=== PATIENT | male | born 1980 | race Caucasian/White ===

== ENCOUNTER 2020-11-25 18:46 | Emergency (ER) | payer OTHER, SELFPAY ==
--- NOTE | ~2020-11-25 | CT_ITS ---
EXAMINATION: CTA brain carotid EXAM DATE: 11/25/2020 21:20 INDICATION: R sided headache. TECHNIQUE: Spiral CTA of the carotid arteries was performed with intravenous injection 100 cc of Om nipaque 350. Axial, coronal, sagittal reformatted images reviewed. Additional reformatted images cre ated on dedicated 3-D workstation. NASCET comparable standard used to assess the degree of arterial stenosis. Spiral CT angiogram cerebral arteries performed with the same intravenous injection of con trast. Source images of the brain CTA transferred to dedicated workstation for 3-D rotational image c reation. Coronal, sagittal maximum intensity pixel images also reviewed. The dose-length product (D LP) for this examination was 1287.68 mGy-cm. The exposure was tailored according to patient size, a nd iterative reconstruction (ASIR) was used as additional dose reduction technique. Correlation is ma de to noncontrast head CT performed earlier. FINDINGS: Bilateral carotid 0% stenosis. The left vertebral artery is dominant. There is no carotid or vertebral basilar arterial dissection or fibromuscular dysplasia. There are no cerebral artery ane urysms. There is symmetric cerebral artery arborization. The sagittal, transverse and sigmoid sinuses enhance normally, no venous sinus thrombosis. Internal cerebral veins also enhance normally. There are no areas of abnormal enhancement on the post contrast images. Incidental Findings: Right lateral scalp sebaceous cyst. IMPRESSION: 1. No acute carotid or intracranial findings. 2. Bilateral carotid 0% stenosis Reviewed, dictated and finalized at location A.
--- NOTE | ~2020-11-25 | CT_ITS ---
EXAMINATION: CT brain wo con DATE: 11/25/2020 19:37 INDICATION: Headache of the right ear for 3 weeks. No known injury. TECHNIQUE: Computed tomography (CT) of the head was performed without intravenous contrast. The mA wa s adjusted according to patient size. Iterative reconstruction technique was employed. Exam dose: 60 5.33 mGy-cm total exam DLP. COMPARISON: None FINDINGS: No intracranial mass lesion or hemorrhage or cerebrovascular accident. No midline shift or mass effect. Normal ventricular size. No subdural or epidural hematoma. No fracture or bone destruction of the cranial vault. Included paranasal sinuses and mastoid air cells are normally developed and aerated. IMPRESSION: No significant abnormality Reviewed, dictated and finalized at Location [facility]. Reviewed, dictated and finalized at location A. IMPRESSION: No significant abnormality
[2020-11-25 19:04] VITALS: BP 170/100; PULSE 70; RESP 18; TEMP 36.3; O2SAT 99
--- NOTE | 2020-11-25 19:10 | ED.HA ---
HPI - Headache General Chief Complaint: Headache Stated Complaint: CRUZ X3 weeks Time Seen by Provider: 11/25/20 19:06 Source: RN notes reviewed History of Present Illness HPI Narrative: Patient presents to emergency department from home for headache. Patient states headache has been present for the past 3 weeks and will wax and wane in intensity but has been constant for the past 3 weeks. The pain is located above the right ear and then will become worse and radiate down into the jaw and to the right posterior neck denies any radiation of the left side of the neck. States he had one episode of nausea with the pain approximately a week ago but none since he does state he has a history of migraines he denies any fevers or chills vision changes ear pain rhinorrhea sore throat cough numbness or tingling in the extremities or any other symptoms. States he last took a Tylenol at 1 PM today Related Data Allergies Allergy/AdvReac Type Severity Reaction Status Date / Time peppermint Allergy Hives Verified 11/25/20 19:38 Review of Systems Review of Systems: Narrative: Gen.: Denies fevers or chills Eyes: Denies eye pain or visual change ENT: Denies congestion Respiratory: Denies shortness of breath or cough CV: Denies chest pain or palpitations GI: Denies abdominal pain nausea, emesis or diarrhea Musculoskeletal: Denies back pain or muscle pain Neuro: See HPI Skin: Denies rash Except as documented, all other systems reviewed and negative [facility] Past Medical History Medical History (Updated 11/25/20 @ 22:32 by Tristian Martinez DO) GERD (gastroesophageal reflux disease) Migraines Social History Social History (Updated 11/25/20 @ 19:12 by Tristian Martinez DO) Smoking status: Never smoker Exam Narrative: Exam Narrative: APPEARANCE: No acute distress, nontoxic, resting in bed EYES: EOMI PERRL HEENT: Normocephalic, atraumatic, TMs clear bilaterally, nares patent OMM no erythema exudate posterior pharynx neck supple, no midline tenderness palpation no managements, mild tenderness over the right paravertebral muscles C5-7 pain with rotation of the head to the left RESPIRATORY: No respiratory distress Clear to auscultation bilaterally with no rhonchi wheezing or rales. CARDIOVASCULAR: Regular rate and rhythm without murmurs rubs or gallops. ABDOMINAL: Soft, nontender, nondistended, no rebound or guarding MUSCULOSKELETAl: Moves all extremities. No clubbing, cyanosis or edema. NEURO: Awake and alert x 4. Following commands, speech normal, no focal deficits SKIN:: Warm, dry. No rashes lesions or abrasions PSYCHIATRIC: Normal affect/mood, Course Course Emergency Course: Cussed with patient patient seen on CT states he has had a hard cyst for numerous years in that region of his head Went to discussed with patient findings of CT scan discussed my feeling that this is likely more musculoskeletal when discussing with the patient he does now note that approximately 3 days prior to the onset of his right-sided headaches he had a massage and he had told the masseuse he had migraines and he states she worked very hard on his neck with this new information I will obtain a CTA to rule out carotid injury Discussed with patient results of workup and diagnosis. Discussed need for follow-up with primary care, proper use of medication, and reasons to return to the emergency department. Patient understands and agrees to current treatment plan Vital Signs Vital signs: Vital Signs Temperature 97.4 F L 11/25/20 19:04 Pulse Rate 70 11/25/20 19:04 Respiratory Rate 18 11/25/20 19:04 Blood Pressure 170/100 H 11/25/20 19:04 Pulse Oximetry 99 11/25/20 19:04 Temperature 98.3 F 11/25/20 19:34 Pulse Rate 73 11/25/20 21:24 Respiratory Rate 19 11/25/20 21:24 Blood Pressure 133/99 H 11/25/20 21:24 Pulse Oximetry 99 11/25/20 21:24 MDM - Headache MDM Narrative Medical decision making narrative: Patient with pain of her right e
--- NOTE | 2020-11-25 19:17 | PC.NURSE ---
pt to radiology via cart.
--- NOTE | 2020-11-25 19:18 | PC.NURSE ---
Pt presents to ED with complaints of headache that has been persistent for the past 2 weeks. Pt states initial onset was after he coughed and at that time he felt a pop in his head. States since then pain has been persistent. Pain starts at right occipital lobe and radiates down left neck. Pt admits to hx of migraine headaches and states that this headache is more intense. Denies photosensitivity and misophonia. Pt is alert and oriented x4 and in no obvious distress at this time with stable vitals. Pt resting on cart in its lowest position with call button and personal items within reach. Pt advised to press call button for assistance.
[2020-11-25 19:34] VITALS: BP 141/90; PULSE 86; RESP 20; TEMP 36.8; O2SAT 99
--- NOTE | 2020-11-25 19:34 | PC.NURSE ---
pt returned from radiology.
[2020-11-25] MEDS: SODIUM CHLORIDE 0.9% IV 1,000 ML 999 ML IV CONT (19:38)
[2020-11-25] MEDS: KETOROLAC 30 MG/ML VIAL (*BKC) IV PUSH (19:39)
--- NOTE | 2020-11-25 19:48 | PC.NURSE ---
Light dimmed and sheet provided for comfort. Pt advised to press call button for assistance.
--- NOTE | 2020-11-25 20:10 | PC.NURSE ---
Pt states he is feeling a little better. Pt remains alert and oriented x4 with stable vitals. Advised to press call button for assistance.
--- NOTE | 2020-11-25 20:21 | PC.NURSE ---
EDMD presented to bedside to update pt on poc. All questions and concerns addressed.
--- NOTE | 2020-11-25 20:38 | PC.NURSE ---
Blood specimens collected and sent to lab. Pt resting on cart and states he feels much better. Remains a/o x4 and vitals are stable. Pt advised to press call button for assistance.
[2020-11-25 20:39] LABS: Basophils Absolute Auto 0.1 K/mm3 (0.0-0.1); Basophils Percent Auto 0.7 % (0.2-1.2); Eosinophils Absolute Auto 0.4 K/mm3 (0-0.3); Hematocrit 39.4 % (42.0-52.0); Hemoglobin 13.2 g/dL (14.0-18.0); Immature Granulocyte Absolute 0.02 K/mm3 (0.00-0.031); Immature Granulocyte Percent A 0.3 % (0-0.5); Lymphocytes Absolute Auto 2.82 K/mm3 (0.9-3.2); Lymphocytes Percent Auto 40.3 % (18.3-44.2); Mean Corpuscular HGB Conc 33.5 g/dl (32-36); Mean Corpuscular Hemoglobin 27.4 pg (26-34); Mean Corpuscular Volume 81.9 fl (80-100); Mean Platelet Volume 9.4 fl (7.4-10.4); Monocytes Absolute Auto 0.7 K/mm3 (0.1-0.6); Monocytes Percent Auto 9.3 % (2.6-8.5); Neutrophils Absolute Auto 3.1 K/mm3 (1.3-6.7); Neutrophils Percent Auto 44.4 % (45.5-73.1); Platelet Count Result 297 k/mm3 (150-375); Red Blood Count 4.81 M/mm3 (4.6-6.20); Red Cell Distribution Width 13.1 % (11.5-14.5)
[2020-11-25 20:49] LABS: Anion Gap 11 mmol/L (8-16); Blood Urea Nitrogen 17 mg/dL (9-20); Calcium 8.9 mg/dL (8.4-10.2); Carbon Dioxide 19 mmol/L (22-30); Chloride 110 mmol/L (98-107); Estimated CRCL calculation 124 ml/min; Estimated Glomerular Filt Rate > 60; Glucose 92 mg/dL (75-110); Sodium 140 mmol/L (137-145)
--- NOTE | 2020-11-25 21:18 | PC.NURSE ---
pt to ct via cart.
--- NOTE | 2020-11-25 21:23 | PC.NURSE ---
pt returned from radiology.
[2020-11-25 21:24] VITALS: BP 133/99; PULSE 73; RESP 19; O2SAT 99
[2020-11-25 22:44] VITALS: BP 132/89; PULSE 76; RESP 16; O2SAT 100
== END 2020-11-25 22:45 | disposition home or self-care (01) ==
PROVIDERS: Emergency Provider Emergency Medicine; PCP Family Medicine
DX: R51.9 Headache, unspecified (principal); S16.1XXA Strain of muscle, fascia and tendon at neck level, initial encounter; K21.9 Gastro-esophageal reflux disease without esophagitis; M79.9 Soft tissue disorder, unspecified; X58.XXXA Exposure to other specified factors, initial encounter
CPT/HCPCS: 36415; 70450; 70496; 70498; 80048; 85025; 96361; 96374; 99284; J1885; J7030; Q9967

== ENCOUNTER 2021-01-18 16:47 | Emergency (ER) | payer OTHER, SELFPAY ==
--- NOTE | ~2021-01-18 | XR_ITS ---
EXAMINATION: XR chest 2V DATE: 01/18/2021 17:22 INDICATION: Shortness of breath, COVID positive TECHNIQUE: PA and lateral views of the chest are obtained. COMPARISON: None available FINDINGS: There are minimal airspace opacities of the lower lung zones. There is no pleural effusion or pneumothorax. The cardiomediastinal silhouette is normal. There is mild thoracic spondylosis. IMPRESSION: 1. Minimal airspace opacities of the lung bases, consistent with atelectasis versus pneumonia. Reviewed, dictated and finalized at location A. IMPRESSION: 1. Minimal airspace opacities of the lung bases, consistent with atelectasis ve rsus pneumonia.
[2021-01-18 17:05] VITALS: BP 126/83; PULSE 115; RESP 20; TEMP 36.8; O2SAT 95
--- NOTE | 2021-01-18 17:11 | ECG_ITS ---
Measurements Intervals [place] Rate: 92 P: 18 DE: 130 QRS: 27 QRSD: 74 T: 48 QT: 309 QTc: 384 Interpretive Statements SINUS RHYTHM NORMAL ECG Electronically Signed On 01-19-2021 9:35:05 CDT by Archie Gonzales D.O.
[2021-01-18 17:22] LABS: Basophils Percent Auto 0.4 % (0.2-1.2); Hematocrit 46.3 % (42.0-52.0); Hemoglobin 15.6 g/dL (14.0-18.0); Immature Granulocyte Absolute 0.02 K/mm3 (0.00-0.031); Immature Granulocyte Percent A 0.4 % (0-0.5); Lymphocytes Absolute Auto 1.02 K/mm3 (0.9-3.2); Lymphocytes Percent Auto 18.1 % (18.3-44.2); Mean Corpuscular HGB Conc 33.7 g/dl (32-36); Mean Corpuscular Hemoglobin 27.4 pg (26-34); Mean Corpuscular Volume 81.4 fl (80-100); Mean Platelet Volume 9.3 fl (7.4-10.4); Monocytes Absolute Auto 0.5 K/mm3 (0.1-0.6); Monocytes Percent Auto 8.1 % (2.6-8.5); Neutrophils Absolute Auto 4.1 K/mm3 (1.3-6.7); Platelet Count Result 225 k/mm3 (150-375); Red Blood Count 5.69 M/mm3 (4.6-6.20); Red Cell Distribution Width 13.5 % (11.5-14.5); White Blood Count 5.7 K/mm3 (4.5-10.0)
[2021-01-18 17:36] LABS: Alanine Aminotransferase 58 U/L (4-50); Albumin Level 4.8 g/dL (3.5-5.1); Alkaline Phosphatase 69 U/L (38-126); Anion Gap 16 mmol/L (8-16); Aspartate Amino Transferase 52 U/L (17-59); Bilirubin,Total 0.7 mg/dL (0.2-1.3); Blood Urea Nitrogen 17 mg/dL (9-20); Calcium 9.4 mg/dL (8.4-10.2); Carbon Dioxide 20 mmol/L (22-30); Chloride 98 mmol/L (98-107); Estimated CRCL calculation 102 ml/min; Estimated Glomerular Filt Rate > 60; Glucose 113 mg/dL (65-110); Potassium 4.2 mmol/L (3.4-5.0); Sodium 134 mmol/L (137-145)
[2021-01-18 18:10] LABS: Add Urine Microscopic? YES; Appearance Urine Clear (Clear); Bilirubin Urine Negative (Negative); Blood Urine Negative (Negative); Color Urine Amber (Yellow); Glucose Urine UA Negative (Negative); Ketones Urine 1+ mg/dL (Negative); Leukocyte Esterase Ur Negative LEU/UL (Negative); Mucus Urine Few /lpf; Nitrate Urine Negative (Negative); Protein Urine 1+ mg/dL (Negative); Squamous Epithelial Cell Urine Rare /hpf (Few); Urobilinogen Urine Negative mg/dL (<2.0); WBC Urine 0-3 /hpf
[2021-01-18 18:12] LABS: Specific Grav Ur 1.043 (1.001-1.035)
[2021-01-18 18:50] LABS: D Dimer 0.27 ug/mL (<0.48)
--- NOTE | 2021-01-18 18:50 | ED.WEAKNESS ---
HPI - Weakness General Chief complaint: Weakness Stated complaint: + Covid I don't think I can take care of myself Time Seen by Provider: 01/18/21 17:49 Source: patient Mode of arrival: ambulatory Limitations: no limitations History of Present Illness HPI Narrative: This is a 40 year old male that presents to the ER for generalized weakness. Reports he was diagnosed with Covid 2 days ago. Symptom onset 5 days ago. Reports he feels like he cannot take care of himself at home. Reports weakness, body aches, and headaches. Also reports chest pain and shortness of breath. He did not get his Covid vaccine. He has been taking Tylenol with little relief. Denies vision changes, vomiting, or numbness. Related Data Allergies Allergy/AdvReac Type Severity Reaction Status Date / Time peppermint Allergy Hives Verified 11/25/20 19:38 Review of Systems Review of Systems: CONSTITUTIONAL: Denies fever ENT: Reports rhinorrhea, congestion, sore throat CARDIOVASCULAR: Reports chest pain RESPIRATORY: Reports cough and dyspnea. GASTROINTESTINAL: Reports nausea MUSCULOSKELETAL: Reports myalgia. All systems reviewed & are unremarkable except as noted in HPI and below PMFSH Past Medical History Medical History (Updated 01/18/21 @ 20:20 by Tatiana Morales PA-C) GERD (gastroesophageal reflux disease) Migraines Social History Social History (Updated 11/25/20 @ 19:12 by Tristian Martinez DO) Smoking status: Never smoker Exam Narrative: GENERAL: Well-appearing, well-nourished, and in no acute distress. HEAD: Normocephalic, atraumatic. EYES: PERRLA and EOMI. ENT: Nares clear, no rhinorrhea or epistaxis. Mucous membranes moist. Oropharynx without tonsillar hypertrophy exudate or other lesions. Bilateral TMs pearly rogers non-bulging NECK: Supple. No adenopathy or masses. CHEST: Clear to auscultation. No respiratory distress. No wheezes rales or rhonchi HEART: Regular rate and rhythm. No murmur heard. Normal peripheral pulses. ABDOMEN: Soft, nontender, nondistended, normal active bowel sounds. EXTREMITIES: Normal range of motion. No edema. SKIN: Warm, dry, no rash. NEURO: No focal deficits. Alert and oriented x3. PSYCH: Normal mood and affect Course Vital Signs Vital signs: Vital Signs Temperature 98.2 F 01/18/21 17:05 Pulse Rate 115 H 01/18/21 17:05 Respiratory Rate 20 01/18/21 17:05 Blood Pressure 126/83 01/18/21 17:05 Pulse Oximetry 95 01/18/21 17:05 Temperature 98.2 F 01/18/21 17:05 Pulse Rate 109 H 01/18/21 18:53 Respiratory Rate 21 H 01/18/21 18:53 Blood Pressure 125/75 01/18/21 18:53 Pulse Oximetry 98 01/18/21 18:53 MDM - Weakness MDM Narrative Medical decision making narrative: Patient presents to the ER for generalized weakness. Recently diagnosed with coronavirus. He is afebrile and nontoxic-appearing. Vitals are stable. Oxygen saturation is remained normal on room air. CBC and metabolic panel without concerning findings. EKG without concerning changes and baseline troponin is negative. D-dimer is not elevated. Chest x-ray shows minimal airspace opacities at the lung bases, atelectasis versus pneumonia. Patient given IV fluids and antiemetics with improvement. He was instructed on continued care of viral infection. He is to follow-up with his primary care doctor. He was given warnings to return to the ER Lab Data Attestation: I reviewed the patient's lab results. Result diagrams: 01/18/21 17:14 01/18/21 17:14 Labs: Lab Results 01/18/21 01/18/21 01/18/21 Range/Units 17:14 17:14 17:14 WBC 5.7 (4.5-10.0) K/mm3 RBC 5.69 (4.6-6.20) M/mm3 Hgb 15.6 (14.0-18.0) g/dL Hct 46.3 (42.0-52.0) % MCV 81.4 (80-100) fl MCH 27.4 (26-34) pg MCHC 33.7 (32-36) g/dl RDW 13.5 (11.5-14.5) % Plt Count 225 (150-375) k/mm3 MPV 9.3 (7.4-10.4) fl Immature Gran % (Auto) 0.4 (0-0.5) % Neut % (Auto) 73.0 (45.5-73.1) % Lymph %
[2021-01-18 18:53] VITALS: BP 125/75; PULSE 109; RESP 21; O2SAT 98
[2021-01-18 18:58] LABS: Troponin I < 0.012 ng/mL (0.000-0.034)
[2021-01-18] MEDS: METOCLOPRAMIDE HCL INJ 10 MG/2 ML VIAL IV PUSH (19:14)
[2021-01-18] MEDS: SODIUM CHLORIDE 0.9% IV 500 ML 999 ML IV CONT (19:14)
[2021-01-18] MEDS: diphenhydrAMINE HCl INJ 50 MG/ML VIAL 25 MG IV PUSH (19:14)
[2021-01-18 20:51] VITALS: BP 130/90; PULSE 115; RESP 23; O2SAT 98
== END 2021-01-18 20:52 | disposition home or self-care (01) ==
PROVIDERS: Physician Assistant; Emergency Provider Emergency Medicine; PCP Family Medicine
DX: U07.1 COVID-19 (principal); J12.82 Pneumonia due to coronavirus disease 2019; K21.9 Gastro-esophageal reflux disease without esophagitis
CPT/HCPCS: 36415; 71046; 80053; 81001; 84484; 85025; 85380; 93005; 96361; 96374; 96375; 99284; J1200; J2765; J7040

== ENCOUNTER 2021-01-23 15:56 | Emergency (ER) | payer OTHER, SELFPAY ==
[2021-01-23] VITALS (15 sets, daily range): BP systolic 113–151; BP diastolic 63–94; PULSE 106–112; RESP 18–37; TEMP 36.3; O2SAT 94–100
--- NOTE | ~2021-01-23 | CT_ITS ---
EXAMINATION: CTA chest PE protocol DATE: 01/23/2021 20:42 INDICATION: Shortness of breath. TECHNIQUE: Computed tomography angiography (CTA) of the chest was performed with 100 mL Omnipaque-350 intravenous contrast timed to evaluate the pulmonary arteries. Coronal maximum intensity projection 3D-reconstructions were created by the technologist. Automated exposure control and iterative reconst ruction technique were employed. The dose-length product was 788.79 mGy-cm. COMPARISON: Chest single view 01/23/2021, chest 2 views 01/18/2021 FINDINGS: There are patchy groundglass and airspace opacities with volume loss involving all lobes. N o pleural effusion. The heart size is normal. No pericardial effusion. There is no pulmonary embolus. There is mild left hilar lymphadenopathy. There is a moderate-sized sliding hiatal hernia. There is diffuse hepatic steatosis. There is mild thoracic spondylosis. There is mild chronic anterior wedging of multiple vertebral bodies. IMPRESSION: 1. No pulmonary embolus. Sensitivity is moderately decreased by motion artifact. 2. Diffuse lung disease, consistent with COVID-19 pneumonia. 3. Mild left hilar lymphadenopathy, likely reactive. 4. Moderate-sized sliding hiatal hernia. Reviewed, dictated and finalized at location A. IMPRESSION: 1. No pulmonary embolus. Sensitivity is moderately decreased by motion artifact . 2. Diffuse lung disease, consistent with COVID-19 pneumonia. 3. Mild left hilar lymphadenopathy, likely reactive. 4. Moderate-sized sliding hiatal hernia.
--- NOTE | ~2021-01-23 | XR_ITS ---
EXAMINATION: XR chest 1V INDICATION: Shortness of breath, COVID positive, worsening shortness of breath TECHNIQUE: PA view of the chest is obtained. COMPARISON: 01/18/2021 FINDINGS: Patchy opacities are now present throughout all lung zones. There is no pleural effusion or pneumothorax. The cardiomediastinal silhouette is normal. IMPRESSION: 1. Diffuse lung opacities with interval worsening, likely worsening COVID pneumonia. Reviewed, dictated and finalized at location A. IMPRESSION: 1. Diffuse lung opacities with interval worsening, likely worsening COVID pneum onia.
--- NOTE | 2021-01-23 15:57 | ECG_ITS ---
Measurements Intervals [place] Rate: 114 P: 15 NM: 147 QRS: 16 QRSD: 81 T: 31 QT: 283 QTc: 391 Interpretive Statements SINUS TACHYCARDIA EARLY PRECORDIAL R/S TRANSITION NONSPECIFIC T-WAVE ABNORMALITY- INFERIOR LEADS BASELINE ARTIFACT- V5-V6 ABNORMAL ECG Electronically Signed On 01-23-2021 16:47:36 CDT by Archie Gonzales D.O.
[2021-01-23 16:33] LABS: Basophils Percent Auto 0.2 % (0.2-1.2); Hematocrit 42.4 % (42.0-52.0); Hemoglobin 14.6 g/dL (14.0-18.0); Immature Granulocyte Absolute 0.05 K/mm3 (0.00-0.031); Lymphocytes Absolute Auto 0.92 K/mm3 (0.9-3.2); Lymphocytes Percent Auto 18.4 % (18.3-44.2); Mean Corpuscular HGB Conc 34.4 g/dl (32-36); Mean Corpuscular Hemoglobin 27.1 pg (26-34); Mean Corpuscular Volume 78.7 fl (80-100); Mean Platelet Volume 9.3 fl (7.4-10.4); Monocytes Absolute Auto 0.3 K/mm3 (0.1-0.6); Neutrophils Absolute Auto 3.8 K/mm3 (1.3-6.7); Neutrophils Percent Auto 75.4 % (45.5-73.1); Platelet Count Result 238 k/mm3 (150-375); Red Blood Count 5.39 M/mm3 (4.6-6.20); Red Cell Distribution Width 12.9 % (11.5-14.5)
[2021-01-23 16:41] LABS: Anion Gap 13 mmol/L (8-16); Blood Urea Nitrogen 18 mg/dL (9-20); Carbon Dioxide 21 mmol/L (22-30); Chloride 98 mmol/L (98-107); Estimated CRCL calculation 94 ml/min; Estimated Glomerular Filt Rate > 60; Glucose 115 mg/dL (65-110); Potassium 3.9 mmol/L (3.4-5.0); Sodium 132 mmol/L (137-145)
[2021-01-23] MEDS: BENZONATATE 100 MG CAPSULE 200 MG PO (19:20)
--- NOTE | 2021-01-23 19:20 | PC.NURSE ---
Pt given tessalon perles as ordered.
[2021-01-23 19:33] LABS: Troponin I < 0.012 ng/mL (0.000-0.034)
--- NOTE | 2021-01-23 20:02 | PC.NURSE ---
pt walk tested by information technology technician. oxygen sats remained at 93-94% on RA.
--- NOTE | 2021-01-23 20:07 | PC.NURSE ---
pt provided with urinal. reports his mother went home. a/o x 4. able to tell this RN his name, month and year, and location. reports he is 'about ready to get out of here. bed alarm in place.
--- NOTE | 2021-01-23 20:22 | ED.SOB ---
HPI - SOB/Dyspnea General Chief Complaint: Shortness of Breath/Dyspnea Stated Complaint: covid +, sob Time Seen by Provider: 01/23/21 18:35 History of Present Illness HPI Narrative: Patient is a 40-year-old male who presents ER with cough. Patient recently diagnosed with COVID-19. He has been having cough and discomfort in his chest since his initial diagnosis. Reports cough worsened over the last day and is uncontrolled. He has not been using his albuterol because it causes burning when he inhales it. He reports persistent fevers and chills. No nausea or vomiting. Related Data Home Medications Medication Instructions Recorded Confirmed omeprazole 01/23/21 Allergies Allergy/AdvReac Type Severity Reaction Status Date / Time peppermint Allergy Hives Verified 01/23/21 18:32 Review of Systems Review of Systems: All systems reviewed & are unremarkable except as noted in HPI and below Constitutional: Constitutional: Reports chills, Reports fatigue and Reports fever(s) ENT: Reports nasal congestion and Denies sore throat Cardiovascular: Cardiovascular: Reports chest pain, Denies rapid heart rate and Denies radiating jaw, neck or arm pain Respiratory: Respiratory: Reports cough, Reports dyspnea and Denies wheezing Gastrointestinal: Gastrointestinal: Denies abdominal pain, Denies nausea and Denies vomiting PMFSH Past Medical History Medical History (Updated 01/23/21 @ 20:42 by Burke Guillen MD) GERD (gastroesophageal reflux disease) Migraines Surgical History Surgical History (Updated 01/23/21 @ 20:23 by Burke Guillen MD) No pertinent past surgical history Social History Social History (Updated 11/25/20 @ 19:12 by Tristian Martinez DO) Smoking status: Never smoker Gender identity (if verbalized by the patient): Male Exam Narrative: GENERAL: Fatigued-appearing, well-nourished, and in no acute distress. HEAD: Normocephalic, atraumatic. EYES: PERRL and EOMI. CHEST: Clear to auscultation. No respiratory distress. HEART: Tachycardic regular. Normal peripheral pulses. ABDOMEN: Soft, nontender, nondistended. EXTREMITIES: Normal range of motion. No edema. SKIN: Warm, dry, no rash. NEURO: Alert and oriented x3. PSYCH: Normal mood and affect. Course Course Emergency Course: He ambulated well without hypoxia. Patient given some Tessalon Perles. Encourage patient to use his albuterol to help with his cough and shortness of breath. Vital Signs Vital signs: Vital Signs Temperature 97.3 F L 01/23/21 16:04 Pulse Rate 112 H 01/23/21 16:04 Respiratory Rate 22 H 01/23/21 16:04 Blood Pressure 126/75 01/23/21 16:04 Pulse Oximetry 99 01/23/21 16:04 Temperature 97.3 F L 01/23/21 16:04 Pulse Rate 109 H 01/23/21 20:32 Respiratory Rate 26 H 01/23/21 20:32 Blood Pressure 151/94 H 01/23/21 20:32 Pulse Oximetry 94 01/23/21 20:32 MDM - SOB/Dyspnea Lab Data Result diagrams: 01/23/21 16:24 01/23/21 16:24 Labs: Lab Results 01/23/21 01/23/21 01/23/21 Range/Units 16:24 16:24 16:24 WBC 5.0 (4.5-10.0) K/mm3 RBC 5.39 (4.6-6.20) M/mm3 Hgb 14.6 (14.0-18.0) g/dL Hct 42.4 (42.0-52.0) % MCV 78.7 L (80-100) fl MCH 27.1 (26-34) pg MCHC 34.4 (32-36) g/dl RDW 12.9 (11.5-14.5) % Plt Count 238 (150-375) k/mm3 MPV 9.3 (7.4-10.4) fl Immature Gran % (Auto) 1.0 H (0-0.5) % Neut % (Auto) 75.4 H (45.5-73.1) % Lymph % (Auto) 18.4 (18.3-44.2) % [place] % (Auto) 5.0 (2.6-8.5) % Eos % (Auto) 0.0 (0-4.4) % Baso % (Auto) 0.2 (0.2-1.2) % Lymph # (Auto) 0.92 (0.9-3.2) K/mm3 [place] # (Auto) 0.3 (0.1-0.6) K/mm3 Eos # (Auto) 0.0 (0-0.3) K/mm3 Baso # (Auto) 0.0 (0.0-0.1) K/mm3 Abs Immat Gran (auto) 0.05 H (0.00-0.031) K/mm3 Absolute Neuts (auto) 3.8 (1.3-6.7) K/mm3 Absolute Nucleated RBC 0.0 (0.0-0.012) K/mm3 Nucleated RBC % 0.0 (0.0-0.2) % S
--- NOTE | 2021-01-23 20:33 | PC.NURSE ---
resting on stretcher, talking on phone, no s/s of acute distress.
[2021-01-23] MEDS: SODIUM CHLORIDE 0.9% IV 1,000 ML 999 ML IV CONT (20:45)
== END 2021-01-23 21:10 | disposition home or self-care (01) ==
PROVIDERS: Emergency Provider Emergency Medicine; PCP Family Medicine
DX: U07.1 COVID-19 (principal); J12.82 Pneumonia due to coronavirus disease 2019; K21.9 Gastro-esophageal reflux disease without esophagitis; K44.9 Diaphragmatic hernia without obstruction or gangrene; R00.0 Tachycardia, unspecified; R94.31 Abnormal electrocardiogram [ECG] [EKG]
CPT/HCPCS: 36415; 71045; 71275; 80048; 84484; 85025; 93005; 99284; A9270; J7030; Q9967

== ENCOUNTER 2021-02-25 12:54 | Emergency (ER) | payer OTHER, SELFPAY ==
--- NOTE | ~2021-02-25 | XR_ITS ---
EXAMINATION: XR shoulder LT min 2V DATE: 02/25/2021 13:30 INDICATION: Left shoulder pain post injury TECHNIQUE: AP internally and externally rotated, AP oblique externally rotated and transscapular Y vi ews of the left shoulder were obtained. COMPARISON: None FINDINGS: Normal alignment. No fracture. Glenohumeral joint is normal. Acromioclavicular joint is normal. Soft tissues are unremarkable. Mild upper thoracic levocurvature. Visualized portion of the lungs are paula ar. Cardiomediastinal silhouette is normal. IMPRESSION: No osseous abnormality at the left shoulder. Reviewed, dictated and finalized at location A.
[2021-02-25 13:08] VITALS: BP 145/87; PULSE 94; RESP 16; TEMP 36.3; O2SAT 100
--- NOTE | 2021-02-25 14:25 | ED.GENADULT ---
HPI - General Adult General Chief complaint: Extremity Injury, Upper Stated complaint: shoulder dislocation Time Seen by Provider: 02/25/21 14:01 History of Present Illness HPI narrative: Patient is a 40-year-old male who presents ER with left shoulder pain. He slipped on the stairs holding the railing and dislocated his shoulder. He went upstairs and sat on the couch when he went to stand back up it popped back in. He has pain that radiates from his shoulder down to his hand when he moves the shoulder. He was seen at an outside urgent urgent care who cannot tell in his x-ray if there was any additional injury so they sent him here to be evaluated again. He did not strike his head or lose consciousness. Patient has dislocated his right side previously but never the left. Related Data Home Medications Medication Instructions Recorded Confirmed omeprazole 01/23/21 Allergies Allergy/AdvReac Type Severity Reaction Status Date / Time peppermint Allergy Hives Verified 01/23/21 18:32 Review of Systems Review of Systems: All systems reviewed & are unremarkable except as noted in HPI and below Musculoskeletal: Musculoskeletal: Denies myalgias, Reports arthralgias and Denies joint swelling Neurologic: Denies focal weakness and Denies numbness PMFSH Past Medical History Medical History (Updated 02/25/21 @ 14:38 by Burke Guillen MD) GERD (gastroesophageal reflux disease) Migraines Surgical History Surgical History (Updated 01/23/21 @ 20:23 by Burke Guillen MD) No pertinent past surgical history Social History Social History (Updated 11/25/20 @ 19:12 by Tristian Martinez DO) Smoking status: Never smoker Gender identity (if verbalized by the patient): Male Exam Narrative: GENERAL: Well-appearing, well-nourished, and in no acute distress. HEAD: Normocephalic, atraumatic. CHEST: Clear to auscultation. No respiratory distress. HEART: Regular rate and rhythm. Normal peripheral pulses. EXTREMITIES: Mild tenderness around the left shoulder. No tenderness to the left elbow or hand. Sensation intact. Normal radial pulses. SKIN: Warm, dry, no rash. NEURO: Alert and oriented x3. Course Course Emergency Course: Patient placed in shoulder immobilizer. Will give Ortho follow-up. Dislocation versus subluxation. Vital Signs Vital signs: Vital Signs Temperature 97.4 F L 09/04/21 13:08 Pulse Rate 94 02/25/21 13:08 Respiratory Rate 16 02/25/21 13:08 Blood Pressure 145/87 H 02/25/21 13:08 Pulse Oximetry 100 02/25/21 13:08 Temperature 97.4 F L 02/25/21 13:08 Pulse Rate 94 02/25/21 13:08 Respiratory Rate 16 02/25/21 13:08 Blood Pressure 145/87 H 02/25/21 13:08 Pulse Oximetry 100 02/25/21 13:08 Medical Decision Making Vital Signs Vital Signs: Vital Signs Temperature 97.4 F L 02/25/21 13:08 Pulse Rate 94 02/25/21 13:08 Respiratory Rate 16 02/25/21 13:08 Blood Pressure 145/87 H 02/25/21 13:08 Pulse Oximetry 100 02/25/21 13:08 Temperature 97.4 F L 02/25/21 13:08 Pulse Rate 94 02/25/21 13:08 Respiratory Rate 16 02/25/21 13:08 Blood Pressure 145/87 H 02/25/21 13:08 Pulse Oximetry 100 02/25/21 13:08 Imaging Data Radiologist's impression: ITS Impressions Shoulder X-Ray 02/25/21 13:53 IMPRESSION: No osseous abnormality at the left shoulder. Discharge Plan Discharge Clinical Impression: Dislocation of shoulder Patient Disposition: Home, Self-Care Condition: Stable Instructions: Shoulder Dislocation (ED), Shoulder Immobilizer (ED) Additional Instructions: Return the ER if you suffer new injury, you have chest pain or shortness of breath, you lose consciousness, you have additional concerns. Prescriptions: No Action omeprazole 40 mg capsule,delayed release(DR/EC) RF: 0 benzonatate [Tessalon Perles] 100 mg capsule 100 mg PO TID Qty: 14 RF: 0 Follow-up/Referrals: Austen Piña
== END 2021-02-25 14:51 | disposition home or self-care (01) ==
PROVIDERS: Emergency Provider Emergency Medicine; PCP Family Medicine
DX: S43.005A Unspecified dislocation of left shoulder joint, initial encounter (principal); K21.9 Gastro-esophageal reflux disease without esophagitis; W10.9XXA Fall (on) (from) unspecified stairs and steps, initial encounter
CPT/HCPCS: 73030; 99283

== ENCOUNTER 2022-08-09 16:39 | Emergency (ER) | payer BC, SELFPAY ==
[2022-08-09 16:58] VITALS: BP 154/96; PULSE 78; RESP 16; TEMP 36.9; O2SAT 99
--- NOTE | 2022-08-09 17:02 | ED.MALEGU ---
HPI - Male Genitourinary General Chief complaint: Urogenital-Male Stated complaint: right scrotum pain Time Seen by Provider: 08/09/22 17:02 Source: patient Mode of arrival: ambulatory Limitations: no limitations History of Present Illness HPI Narrative: 42-year-old male presents with complaint of pain to right testicle after vasectomy. patient had vasectomy 1 week ago. Reports that pain was improving. Started having increase in pain to right testicle 2 days ago. Called Urology office this morning and no one ever called him back. [facility]. He is afebrile. Admits that he is sitting all day for work And is not elevating scrotum like he was told to do. urinating normally. No radiation of pain. All Systems reviewed and negative except as noted above. Related Data Home Medications Medication Instructions Recorded Confirmed omeprazole 40 mg capsule,delayed 40 mg PO DAILY 01/23/21 08/09/22 release methylphenidate HCl 30 mg biphasic 30 mg PO DAILY 08/09/22 08/09/22 30-70 capsule,extended release tramadol 50 mg tablet 50 mg PO DAILY 08/09/22 08/09/22 Allergies Allergy/AdvReac Type Severity Reaction Status Date / Time peppermint Allergy Hives Verified 08/09/22 16:59 Review of Systems Review of Systems: CONSTITUTIONAL: Denies fever, chills, or sweats. EYES: Denies visual changes, redness, or discharge. ENT: Denies rhinorrhea, congestion, sore throat, or otalgia. CARDIOVASCULAR: Denies chest pain, palpitations, or edema. RESPIRATORY: Denies cough or dyspnea. GASTROINTESTINAL: Denies abdominal pain, nausea, vomiting, or diarrhea. GENITOURINARY: reports pain to right testicle. SKIN: Denies rash or itching. MUSCULOSKELETAL: Denies back pain, joint pain, or myalgia. NEUROLOGIC: Denies headache, numbness, or weakness. PSYCHIATRIC: Denies anxiety or depression. All other systems reviewed are negative, except as documented in HPI. [facility] Past Medical History Medical History (Updated 08/09/22 @ 17:24 by Zoë López NP) GERD (gastroesophageal reflux disease) Migraines Surgical History Surgical History (Updated 01/23/21 @ 20:23 by Burke Guillen MD) No pertinent past surgical history Social History Social History (Updated 11/25/20 @ 19:12 by Tristian Martinez DO) Smoking status: Never smoker Gender identity (if verbalized by the patient): Male Comments At time of signature, agree with nursing past medical, surgical, social and family history. There is no relevant family history pertinent to the presenting complaint. Exam Narrative: GENERAL: This is a well-nourished, well-developed patient, in no apparent distress. HEAD: normocephalic, atraumatic. EYES: PERRL. Sclera clear/white. Vision is grossly intact. EARS: External ears normal NOSE: External nose normal NECK: Neck supple, non-tender without lymphadenopathy, masses or thyromegaly. CARDIOVASCULAR: Regular rate and rhythm without murmurs, gallops, or rubs. RESPIRATORY: Clear to auscultation. Breath sounds equal bilaterally. No wheezes, rales, or rhonchi. SKIN: warm, Dry, intact with no suspicious lesions or rash, good texture and turgor. NEURO: awake, alert, and oriented to person, place and time. There were no obvious focal neurologic abnormalities. EXTREMITIES: No joint tenderness, effusion, or edema noted. UROGENITAL: no redness to scrotum. scrotum overall is swollen, not worse to R side. R tesicle tender on palpation. incisions are healing, no signs of infection. Course Course Level of Care: [facility] Visit Vital Signs Vital signs: Vital Signs Temperature 36.9 C 08/09/22 16:58 Pulse Rate 78 08/09/22 16:58 Respiratory Rate 16 08/09/22 16:58 Blood Pressure 154/96 H 08/09/22 16:58 Pulse Oximetry 99 08/09/22 16:58 Oxygen Delivery Room Air 08/09/22 16:58 Temperature 36.9 C 08/09/22 16:58 Pulse Rate 78 08/09/22 16:58 Respiratory Rate 16 08/09/22 1
== END 2022-08-09 17:32 | disposition home or self-care (01) ==
PROVIDERS: Emergency Provider Nurse Practitioner Family
DX: G89.18 Other acute postprocedural pain (principal); Z98.52 Vasectomy status; K21.9 Gastro-esophageal reflux disease without esophagitis
CPT/HCPCS: 99213; G0463

== ENCOUNTER → 2022-11-17 07:28 | Outpatient (CLI) | payer BC, SELFPAY ==
--- NOTE | ~2022-11-17 | US_ITS ---
EXAMINATION: US abdomen limited DATE: 11/17/2022 07:45 INDICATION: Abnormal liver function tests. TECHNIQUE: Multiple grayscale and Doppler ultrasound images of the abdomen were obtained. COMPARISON: Chest CT 01/23/2021 FINDINGS: The visualized portions of the head and body of the pancreas are normal. There is diffuse h epatic steatosis. No liver surface nodularity. There is normal flow in main portal vein. The gallblad sahara is normal in size and contains sludge. No visible gallstones. No gallbladder wall thickening or s onographic Hodge sign. The common duct is normal and measures 6 mm. IMPRESSION: 1. Diffuse hepatic steatosis. Reviewed, dictated and finalized at location A.
== END ==
PROVIDERS: PCP Family Medicine; Visit Provider Family Medicine
DX: R74.8 Abnormal levels of other serum enzymes (principal); K76.0 Fatty (change of) liver, not elsewhere classified
CPT/HCPCS: 76705

== ENCOUNTER 2022-12-18 14:39 | Emergency (ER) | payer BC, SELFPAY ==
[2022-12-18] VITALS (18 sets, daily range): BP systolic 129–159; BP diastolic 88–120; PULSE 103–110; RESP 16–18; TEMP 36.3; O2SAT 96–100
--- NOTE | ~2022-12-18 | CT_ITS ---
EXAMINATION: CT abdomen pelvis w con DATE: 12/18/2022 16:12 INDICATION: Left lower quadrant abdominal pain TECHNIQUE: Computed tomography (CT) of the abdomen and pelvis was performed with 100 mL Omnipaque-350 intravenous contrast. Automated exposure control and iterative reconstruction technique were employe d. The dose-length product was 1556.39 mGy-cm. COMPARISON: None FINDINGS: Mild dependent atelectasis in bilateral lower lobes and in the lingula. Calcified right middle lobe n odule consistent with old granulomatous disease. Moderate-sized sliding-type hiatal hernia. Suggestio n of some wall thickening in the distal esophagus which could be related to associated esophagitis. L iver, gallbladder, spleen, pancreas, bilateral adrenal glands and left kidney are normal. 5 mm low-at tenuation likely right renal cyst which is too small to definitively characterize. There are few scat tered colonic diverticula. There is prominent inflammatory stranding surrounding a diverticulum at th e distal descending colon consistent with diverticulitis. No abscess or free intraperitoneal gas or f luid. Small bowel and appendix are normal. Bladder is normal. Prostatomegaly measuring 5.1 x 3.7 cm. No pathologically enlarged abdominal or pelvic lymphadenopathy. Mild lumbar levoscoliosis with mild s pondylosis. IMPRESSION: 1. Radiographically uncomplicated diverticulitis at the distal descending colon. 2. Moderate-sized sliding-type hiatal hernia with possible wall thickening at the distal esophagus wh ich could be seen with esophagitis related to reflux. Reviewed, dictated and finalized at location A. IMPRESSION: 1. Radiographically uncomplicated diverticulitis at the distal descending colon . 2. Moderate-sized sliding-type hiatal hernia with possible wall thickening at t he distal esophagus which could be seen with esophagitis related to reflux.
[2022-12-18 15:11] LABS: Alanine Aminotransferase 69 U/L (6-50); Albumin Level 4.6 g/dL (3.5-5.1); Alkaline Phosphatase 83 U/L (38-126); Anion Gap 13 mmol/L (8-16); Aspartate Amino Transferase 49 U/L (17-59); Bilirubin,Total 0.4 mg/dL (0.2-1.3); Blood Urea Nitrogen 12 mg/dL (9-20); Calcium 9.2 mg/dL (8.4-10.2); Carbon Dioxide 23 mmol/L (22-30); Chloride 102 mmol/L (98-107); Estimated CRCL calculation 131 ml/min; Estimated Glomerular Filt Rate > 60; Glucose 133 mg/dL (65-110); Lipase 111 U/L (23-300); Potassium 3.7 mmol/L (3.4-5.0); Sodium 138 mmol/L (137-145)
[2022-12-18 15:11] LABS: Basophils Absolute Auto 0.1 K/mm3 (0.0-0.1); Basophils Percent Auto 0.5 % (0.2-1.2); Eosinophils Absolute Auto 0.2 K/mm3 (0-0.3); Eosinophils Percent Auto 1.6 % (0-4.4); Hematocrit 38.9 % (42.0-52.0); Hemoglobin 11.8 g/dL (14.0-18.0); Immature Granulocyte Absolute 0.03 K/mm3 (0.00-0.031); Immature Granulocyte Percent A 0.3 % (0-0.5); Lymphocytes Absolute Auto 2.46 K/mm3 (0.9-3.2); Lymphocytes Percent Auto 20.9 % (18.3-44.2); Mean Corpuscular HGB Conc 30.3 g/dl (32-36); Mean Corpuscular Hemoglobin 22.6 pg (26-34); Mean Corpuscular Volume 74.4 fl (80-100); Mean Platelet Volume 9.4 fl (7.4-10.4); Monocytes Percent Auto 8.2 % (2.6-8.5); Neutrophils Absolute Auto 8.1 K/mm3 (1.3-6.7); Neutrophils Percent Auto 68.5 % (45.5-73.1); Platelet Count Result 349 k/mm3 (150-375); Red Blood Count 5.23 M/mm3 (4.6-6.20); Red Cell Distribution Width 17.8 % (11.5-14.5); White Blood Count 11.8 K/mm3 (4.5-10.0)
[2022-12-18 15:15] LABS: Appearance Urine Clear (Clear); Bacteria Urine None Seen /hpf; Bilirubin Urine Negative (Negative); Blood Urine Negative (Negative); Color Urine Yellow (Yellow); Glucose Urine UA Negative (Negative); Ketones Urine Negative (Negative); Leukocyte Esterase Ur Trace LEU/UL (Negative); Nitrate Urine Negative (Negative); Non Pathogenic Casts 0-2; Protein Urine Negative (Negative); RBC Urine 0-2 /hpf (0-2); Squamous Epithelial Cell Urine None seen /hpf (Few); WBC Urine 0-5 /hpf
[2022-12-18 15:22] LABS: Add Urine Microscopic? YES
[2022-12-18 15:36] LABS: Platelet Estimate Adequate (Adequate)
[2022-12-18 15:37] LABS: Anisocytosis 1+ (NORMAL); Schistocytes None Seen (NORMAL)
--- NOTE | 2022-12-18 16:08 | PC.NURSE ---
Addendum entered by Verónica Crow RN 12/18/22 16:08: pt went to ct at 15:55 Original Note: pt went to CT
[2022-12-18] MEDS: ONDANSETRON INJ 4 MG/2 ML VIAL IV PUSH (16:25)
[2022-12-18] MEDS: FAMOTIDINE 20 MG/2 ML VIAL IV PUSH (16:25)
[2022-12-18] MEDS: MORPHINE SULFATE (*CRX) 4 MG/ML INJ 2 MG IV PUSH (16:25)
[2022-12-18] MEDS: SODIUM CHLORIDE 0.9% IV 1,000 ML 999 ML IV CONT (16:26)
--- NOTE | 2022-12-18 17:16 | ED.GENADULT ---
HPI - General Adult General Chief complaint: Abdominal Pain Stated complaint: left side pain Time Seen by Provider: 12/18/22 15:48 History of Present Illness HPI narrative: Vernon Puri is a 42 y/o male who presents today with reports of having left lower abdominal pain that started about 1pm today. He denies any vomiting, reports mild nausea but has been able to eat and drink ok today. Denies fever/chills, last BM was today. Denies changes to urination. He reports moving around seems to make his pain worse but resting makes his pain better. Related Data Home Medications Medication Instructions Recorded Confirmed omeprazole 40 mg capsule,delayed 40 mg PO DAILY 01/23/21 08/09/22 release methylphenidate HCl 30 mg biphasic 30 mg PO DAILY 08/09/22 08/09/22 30-70 capsule,extended release tramadol 50 mg tablet 50 mg PO DAILY 08/09/22 08/09/22 Allergies Allergy/AdvReac Type Severity Reaction Status Date / Time peppermint Allergy Hives Verified 08/09/22 16:59 Review of Systems Review of Systems: CONSTITUTIONAL: Denies fever, chills, or sweats. EYES: Denies visual changes, redness, or discharge. ENT: Denies rhinorrhea, congestion, sore throat, or otalgia. CARDIOVASCULAR: Denies chest pain, palpitations, or edema. RESPIRATORY: Denies cough or dyspnea. GASTROINTESTINAL: Reports left lower quadrant abdominal pain, slight nausea, No vomiting, or diarrhea. GENITOURINARY: Denies dysuria or hematuria. SKIN: Denies rash or itching. MUSCULOSKELETAL: Denies back pain, joint pain, or myalgia. NEUROLOGIC: Denies headache, numbness, dizziness, or weakness. PSYCHIATRIC: Denies anxiety or depression. PMFSH Past Medical History Medical History GERD (gastroesophageal reflux disease) Migraines Surgical History Surgical History No pertinent past surgical history Social History Social History Smoking status: Never smoker Gender identity (if verbalized by the patient): Male Exam Narrative: GENERAL: Well-appearing, well-nourished, and in no acute distress. HEAD: Normocephalic, atraumatic. EYES: PERRLA and EOMI. ENT: Nares clear, no rhinorrhea or epistaxis. Mucous membranes moist. Oropharynx without tonsillar hypertrophy exudate or other lesions. NECK: Supple. No adenopathy or masses. No carotid bruits or JVD CHEST: Clear to auscultation. No respiratory distress. No wheezes rales or rhonchi HEART: Regular rate and rhythm. No murmur heard. Normal peripheral pulses. ABDOMEN:Bowel sounds present, abdomen soft, tender to the left lower quadrant, No CVA tenderness noted on exam EXTREMITIES: Normal range of motion. No edema. SKIN: Warm, dry, no rash. NEURO: No focal deficits. Alert and oriented x3. PSYCH: Normal mood and affect. Course Vital Signs Vital signs: Vital Signs Temperature 36.3 C L 12/18/22 14:40 Pulse Rate 110 H 12/18/22 14:40 Respiratory Rate 16 12/18/22 14:40 Blood Pressure 159/89 H 12/18/22 14:40 Pulse Oximetry 97 12/18/22 14:40 Oxygen Delivery Room Air 12/18/22 14:40 Temperature 36.3 C L 12/18/22 14:40 Pulse Rate 103 H 12/18/22 15:14 Respiratory Rate 18 12/18/22 15:14 Blood Pressure 135/120 H 12/18/22 17:31 Pulse Oximetry 100 12/18/22 18:15 Oxygen Delivery Room Air 12/18/22 14:40 Vitals reviewed by me. Medical Decision Making MDM Narrative Medical decision making narrative: On exam pt is noted to left lower abdominal pain , reports slight nausea but no vomiting. Denies fever/chills Tolerating PO Last BM today no gross blood Denies changes with urination Labs are stable, and CT is showing non complicated diverticulitis Using shared decision making and going over criteria for admission pt would prefer to be d/c home and continue oral antibiotics at home, He reports his pain has improved
[2022-12-18] MEDS: AMOXICILLIN/CLAVULANATE K 875-125 MG TAB 1 TABLET PO (17:46)
== END 2022-12-18 18:45 | disposition home or self-care (01) ==
PROVIDERS: Emergency Medicine; Emergency Provider Nurse Practitioner Family; PCP Family Medicine
DX: K57.92 Diverticulitis of intestine, part unspecified, without perforation or abscess without bleeding (principal); K20.90 Esophagitis, unspecified without bleeding
CPT/HCPCS: 36415; 74177; 80053; 81001; 83690; 85025; 96361; 96374; 96375; 99284; A9270; J2270; J2405; J7030; Q9967

== ENCOUNTER 2024-09-19 07:36 | Outpatient (CLI) | payer BC, SELFPAY ==
--- NOTE | ~2024-09-19 | XR_ITS ---
CHEST RADIOGRAPH, PA AND LATERAL CLINICAL HISTORY: Pre-op eval . COMPARISON: 12/29/2020 TECHNIQUE: PA and lateral views of the chest. FINDINGS The cardiomediastinal silhouette is enlarged, unchanged. The lungs are clear. IMPRESSION: No focal infiltrate or effusion. Reviewed, dictated and finalized at location A.
== END 2024-09-19 07:37 | disposition home or self-care (01) ==
LOC: MICIMG 07:38
PROVIDERS: PCP Family Medicine; Visit Provider Family Medicine
DX: Z01.818 Encounter for other preprocedural examination (principal)
CPT/HCPCS: 71046